=== PATIENT | female | born 1965 | race Caucasian/White ===

== ENCOUNTER → 2017-05-10 | Outpatient (CLI) | payer OTHER ==
--- NOTE | 2017-05-10 10:44 | XR ---
EXAMINATION TYPE: XR humerus RT DATE OF EXAM: 05/10/2017 CLINICAL HISTORY: Right arm pain after lifting injury TECHNIQUE: Two views of the right humerus are obtained. COMPARISON: None. FINDINGS: There is no acute fracture or dislocation seen in the right humerus. The right shoulder a nd elbow joints appear within normal limits. The overlying soft tissue appears within normal limits. IMPRESSION: No acute fracture or dislocation is evident in the right humerus.
== END | disposition home or self-care (01) ==
LOC: RADXRMAIN 10:19
PROVIDERS: ATTEND Emergency Medicine
DX: S40.921A Unspecified superficial injury of right upper arm, initial encounter (principal)

== ENCOUNTER 2018-01-28 17:18 | Inpatient (IN) | payer BC, OTHER ==
[2018-01-28] MEDS ORDERED: SODIUM CHLORIDE 0.9% 1,000 ML IV STA (17:33)
--- NOTE | 2018-01-28 17:42 | ED ---
Dizziness HPI - General Chief Complaint: Dizziness Stated Complaint: Recheck Sinus Infection Time Seen by Provider: 01/28/18 17:33 Source: patient, RN notes reviewed, old records reviewed Mode of arrival: ambulatory Limitations: no limitations - History of Present Illness Initial Comments: This is a 52-year-old female the ER for evaluation. Patient resents today for evaluation of dizziness lightheadedness headache, patient also had some ataxia today with stumbling to her left. Patient is recent diagnosis of sinusitis which she is on antibiotics for an kcll-wut-yptedus medication. No other history of medical issues. No high blood pressure high cholesterol no diabetes no history of smoking. Patient denies drugs or alcohol abuse. Patient denies room spinning currently. She has mild nausea no vomiting, she thinks he may have had some fevers but does not have recorded MD Complaint: dizziness, difficulty walking -: days(s) Timing: gradual onset, intermittent Description: lightheadedness, off-balance, difficulty walking History of Same: No History of Trauma: No Severity: mild Improves With: remaining still Worsens With: nothing Associated Symptoms: denies other symptoms - Related Data Home Medications Medication Instructions Recorded Confirmed Guaifenesin/Pseudoephedrne HCl 1 tab PO Q12H PRN 01/28/18 01/28/18 [Mucinex D ER 1,200-120 mg Tab] Ibuprofen [Motrin Ib] 400 mg PO Q6H PRN 01/28/18 01/28/18 Sulfamethox-Tmp 800-160Mg [Bactrim 1 tab PO BID 01/28/18 01/28/18 DS 800-160 mg] Allergies Allergy/AdvReac Type Severity Reaction Status Date / Time feathers AdvReac Dyspnea Verified 01/28/18 17:39 mold AdvReac Dyspnea Verified 01/28/18 17:39 Review of Systems ROS Statement: Those systems with pertinent positive or pertinent negative responses have been documented in the HPI. ROS Other: All systems not noted in ROS Statement are negative. Past Medical History Past Medical History: Asthma History of Any Multi-Drug Resistant Organisms: None Reported Additional Past Surgical History / Comment(s): cyst removed from uterus, "essure " procedure Past Psychological History: No Psychological Hx Reported Smoking Status: Current every day smoker Past Alcohol Use History: Occasional Past Drug Use History: None Reported General Exam - General Exam Comments Initial Comments: NIH is 0, cerebellar testing is negative Limitations: no limitations General appearance: alert, in no apparent distress Head exam: Present: atraumatic, normocephalic, normal inspection Eye exam: Present: normal appearance, PERRL, EOMI. Absent: scleral icterus, conjunctival injection, periorbital swelling ENT exam: Present: normal exam, mucous membranes moist Neck exam: Present: normal inspection. Absent: tenderness, meningismus, lymphadenopathy Respiratory exam: Present: normal lung sounds bilaterally. Absent: respiratory distress, wheezes, rales, rhonchi, stridor Cardiovascular Exam: Present: regular rate, normal rhythm, normal heart sounds. Absent: systolic murmur, diastolic murmur, rubs, gallop, clicks GI/Abdominal exam: Present: soft, normal bowel sounds. Absent: distended, tenderness, guarding, rebound, rigid Extremities exam: Present: normal inspection, full ROM, normal capillary refill. Absent: tenderness, pedal edema, joint swelling, calf tenderness Back exam: Present: normal inspection Neurological exam: Present: alert, oriented X3, CN II-XII intact Psychiatric exam: Present: normal affect, normal mood Skin exam: Present: warm, dry, intact, normal color. Absent: rash Course Vital Signs 01/28/18 01/28/18 01/28/18 17:25 18:36 18:40 Temperature 98.4 F Pulse Rate 78 69 Respiratory 18 Rate Blood Pressure 109/74 99/53 O2 Sat by Pulse 99 100 100 Oximetry 01/28/18 01/28/18 01/28/18 18:50 19:01 19:10 Temperature Pulse Rate 71 71 72 Respiratory 18 Rate Blood Pressure 99/53 99/53 99/53 O2 Sat by Pulse 100 100 100 Oximetry 01/28/18 01/28/18 01/28/18 19:20 19:30 19:40 Temperature Pulse Rate 71 69 Respiratory 18 Rate Blood Pressure 99/53 99/53 99/53 O2 Sat by Pulse 100 94 L Oximetry 01/28/18 01/28/18 01/28/18 19:50 20:00 20:10 Temperature Pulse Rate 74 Respiratory Rate Blood Pressure 101/60 101/60 101/60 O2 Sat by Pulse 99 Oximetry 01/28/18 01/28/18 20:20 20:30 Temperature Pulse Rate 71 73 Respiratory Rate Blood Pressure 101/60 101/60 O2 Sat by Pulse 99 Oximetry - Reevaluation(s) Reevaluation #1: 01/28/18 18:29 Medical record is reviewed EKG Findings - EKG Comments: EKG Findings:: EKG shows sinus rhythm rate of 60, TN 1:30, QRS 84, QTC 444 Medical Decision Making - Lab Data Result diagrams: 01/28/18 18:20 01/28/18 18:20 Lab Results 01/28/18 01/28/18 01/28/18 Range/Units 18:20 18:20 18:20 WBC 13.9 H (3.8-10.6) k/uL RBC 4.57 (3.80-5.40) m/uL Hgb 13.2 (11.4-16.0) gm/dL Hct 40.7 (34.0-46.0) % MCV 89.2 (80.0-100.0) fL MCH 28.9 (25.0-35.0) pg MCHC 32.4 (31.0-37.0) g/dL RDW 13.0 (11.5-15.5) % Plt Count 375 (150-450) k/uL Neutrophils % 84 % Lymphocytes % 10 % Monocytes % 4 % Eosinophils % 1 % Basophils % 0 % Neutrophils # 11.7 H (1.3-7.7) k/uL Lymphocytes # 1.4 (1.0-4.8) k/uL Monocytes # 0.6 (0-1.0) k/uL Eosinophils # 0.1 (0-0.7) k/uL Basophils # 0.1 (0-0.2) k/uL Sodium 138 (137-145) mmol/L Potassium 4.7 (3.5-5.1) mmol/L Chloride 105 (98-107) mmol/L Carbon Dioxide 25 (22-30) mmol/L Anion Gap 8 mmol/L BUN 17 (7-17) mg/dL Creatinine 1.04 (0.52-1.04) mg/dL Est GFR (CKD-EPI)AfAm 73 (>60 ml/min/1.73 sqM) Est GFR (CKD-EPI)NonAf 63 (>60 ml/min/1.73 sqM) Glucose 158 H (74-99) mg/dL Calcium 9.2 (8.4-10.2) mg/dL Total Bilirubin 0.4 (0.2-1.3) mg/dL AST 16 (14-36) U/L ALT 20 (9-52) U/L Alkaline Phosphatase 76 (38-126) U/L Total Creatine Kinase 82 (30-135) U/L CK-MB (CK-2) 1.4 (0.0-2.4) ng/mL CK-MB (CK-2) Rel Index 1.7 Troponin I 0.037 H* (0.000-0.034) ng/mL Total Protein 6.8 (6.3-8.2) g/dL Albumin 3.8 (3.5-5.0) g/dL Critical Care Time Critical Care Time: Yes Total Critical Care Time: 31 Disposition Clinical Impression: Dizziness, NSTEMI (non-ST elevated myocardial infarction) Disposition: ADMITTED IP TO THIS [facility] Condition: Good Is patient prescribed a controlled substance at d/c from ED?: No Referrals: Yahaira Torrez DO [Primary Care Provider] - 1-2 days
[2018-01-28] MEDS: ONDANSETRON 4 MG/2 ML VIAL IVP STA ×2 (18:30→21:45)
[2018-01-28 18:36] LABS: Basophils # (A) 0.1 k/uL (0-0.2); Basophils % (A) 0 %; Eosinophils # (A) 0.1 k/uL (0-0.7); Eosinophils % (A) 1 %; HCT 40.7 % (34.0-46.0); HGB 13.2 gm/dL (11.4-16.0); Lymphocytes # (A) 1.4 k/uL (1.0-4.8); Lymphocytes % (A) 10 %; MCH 28.9 pg (25.0-35.0); MCHC 32.4 g/dL (31.0-37.0); MCV 89.2 fL (80.0-100.0); Mean Platelet Volume 7.4; Monocytes # (A) 0.6 k/uL (0-1.0); Monocytes % (A) 4 %; Neutrophils # (A) 11.7 k/uL (1.3-7.7); Neutrophils % (A) 84 %; Platelet Count 375 k/uL (150-450); RBC 4.57 m/uL (3.80-5.40); WBC 13.9 k/uL (3.8-10.6)
[2018-01-28 18:52] LABS: Albumin 3.8 g/dL (3.5-5.0); Calcium 9.2 mg/dL (8.4-10.2); Potassium 4.7 mmol/L (3.5-5.1); Total Bilirubin 0.4 mg/dL (0.2-1.3); Total Protein 6.8 g/dL (6.3-8.2)
[2018-01-28 19:11] LABS: Creatine Kinase MB 1.4 ng/mL (0.0-2.4)
[2018-01-28 19:14] LABS: Troponin I 0.037 ng/mL (0.000-0.034)
--- NOTE | 2018-01-28 19:42 | CT ---
EXAMINATION TYPE: CT brain wo con DATE OF EXAM: 01/28/2018 COMPARISON: None HISTORY: Weakness. CT DLP: 1091.4 mGycm Automated exposure control for dose reduction was used. FINDINGS: Ventricles and sulci appear normal. There is no mass effect nor midline shift. There is no sign of in tracranial hemorrhage. Calvarium is intact. IMPRESSION: NEGATIVE CT SCAN OF THE BRAIN.
[2018-01-28] MEDS ORDERED: HEPARIN SODIUM,PORCINE 5,000 UNIT/ML 1 ML VIAL IV ONE (20:38)
[2018-01-28] MEDS ORDERED: NITROGLYCERIN SL TABS 0.4 MG TAB SUBLINGUAL PRN (20:38)
[2018-01-28] MEDS ORDERED: HEPARIN SODIUM,PORCINE 5,000 UNIT/ML 1 ML VIAL IV PRN (20:38)
[2018-01-28] MEDS ORDERED: ASPIRIN 81 MG PO STA (20:38)
[2018-01-28] MEDS: METOPROLOL TARTRATE 25 MG TAB PO SCH (21:40)
[2018-01-28] MEDS: HEPARIN SOD,PORK IN 0.45% NACL 25,000 UNIT in 0.45% NACL 1 500ML.BAG IV SCH (21:40)
[2018-01-28 23:42] LABS: Creatine Kinase MB 1.4 ng/mL (0.0-2.4)
[2018-01-28 23:43] LABS: Troponin I 0.042 ng/mL (0.000-0.034)
[2018-01-28] MEDS ORDERED: [UNRECOGNIZED DRUG - OTHER] PO PRN (23:43)
[2018-01-28] MEDS ORDERED: TEMAZEPAM 15 MG CAP PO PRN (23:44)
[2018-01-28] MEDS ORDERED: ALPRAZolam 0.25 MG TAB PO PRN (23:44)
[2018-01-29] MEDS: ACETAMINOPHEN TAB 500 MG TAB PO PRN ×3 (04:03→23:59)
[2018-01-29 05:42] VITALS: BMI 40.7
[2018-01-29 05:55] LABS: Basophils # (A) 0.1 k/uL (0-0.2); Basophils % (A) 1 %; Eosinophils # (A) 0.1 k/uL (0-0.7); Eosinophils % (A) 1 %; HCT 36.4 % (34.0-46.0); HGB 11.6 gm/dL (11.4-16.0); Lymphocytes % (A) 19 %; MCH 28.8 pg (25.0-35.0); MCHC 31.8 g/dL (31.0-37.0); MCV 90.4 fL (80.0-100.0); Mean Platelet Volume 7.2; Monocytes # (A) 0.5 k/uL (0-1.0); Monocytes % (A) 5 %; Neutrophils # (A) 7.3 k/uL (1.3-7.7); Neutrophils % (A) 73 %; Platelet Count 377 k/uL (150-450); RBC 4.02 m/uL (3.80-5.40); WBC 10.1 k/uL (3.8-10.6)
[2018-01-29] MEDS: PANTOPRAZOLE 40 MG TABLET PO SCH (06:51)
[2018-01-29 07:07] LABS: Calcium 8.7 mg/dL (8.4-10.2); Potassium 4.6 mmol/L (3.5-5.1)
[2018-01-29 07:18] LABS: Creatine Kinase MB 1.4 ng/mL (0.0-2.4)
[2018-01-29 07:22] LABS: Troponin I 0.053 ng/mL (0.000-0.034)
[2018-01-29] MEDS: ASPIRIN 325 MG TAB PO SCH (08:36)
[2018-01-29] MEDS: SULFAMETHOX-TMP 800-160MG 1 EACH TAB PO SCH ×2 (08:36→21:01)
[2018-01-29] MEDS: METOPROLOL TARTRATE 25 MG TAB PO SCH ×2 (08:36→21:02)
--- NOTE | 2018-01-29 09:51 | HP ---
HISTORY AND PHYSICAL DATE OF SERVICE: 01/28/2018 CHIEF COMPLAINTS: Chest pain, dizziness, headache, sinus infection. HISTORY OF PRESENT ILLNESS: This is a 52-year-old woman with a past medical history of multiple medical problems including history of asthma, history of nicotine dependence being followed by the head of Pulmonary in the outpatient setting. Patient has been sinus issues for the past several days. Patient had headache and neck pain. The patient is also complaining of dizziness. The patient was taking antibiotics, no lakt-dxp-ddxmkka medications. The patient was also complaining of some vague chest discomfort and patient came to [facility] and was admitted for evaluation. Troponins I is 0.037. The initial EKG shows no acute abnormality except nonspecific SVG history changes. There is no history of fever, rigors or chills. No headaches, loss of consciousness or seizures. PAST MEDICAL HISTORY: Recent sinus infection, asthma, history nicotine dependence. MEDICATIONS PRIOR TO ADMISSION INCLUDE: 1. Bactrim DS 1 p.o. b.i.d. 2. Motrin 400 mg q.6 p.r.n. 3. Mucinex 1 p.o. b.i.d. p.r.n. ALLERGIES: FEATHERS, MOLD. FAMILY HISTORY: No history of heart disease or strokes family. SOCIAL HISTORY: No smoking no alcohol intake. REVIEW OF SYSTEMS: ENT: As mentioned earlier. CARDIOVASCULAR: As mentioned earlier. GI: No nausea. : No dysuria. NERVOUS SYSTEM:: No numbness or weakness. ALLERGY/IMMUNOLOGY: No asthma. MUSCULOSKELETAL: As mentioned earlier. HEMATOLOGY: No history anemia. ENDOCRINE: No history of diabetes or hypothyroid. CONSTITUTIONAL: As mentioned earlier. DERMATOLOGY: Negative. PSYCHIATRIC: Negative. PHYSICAL EXAMINATION: Pulse 65, blood pressure 101/63, respiration 20, temperature is normal, pulse ox normal. HEENT: Conjunctivae normal. NECK: No jugular venous distension. CARDIOVASCULAR: S1, S2. RESPIRATION: Breath sounds diminished at the bases, no rhonchi, no crackles. ABDOMEN: Soft, obese, nontender. No mass palpable. LEGS: No edema, no swelling. NERVOUS SYSTEM: Higher functions as mentioned. Moves all four limbs. LYMPHATICS: No lymph node enlargement in the neck or axillae. SKIN: No rash, ulcers or bleeding.. JOINTS: No active arthropathy. LABS: WBC 13.2, hemoglobin is 13.2 glucose 158 and troponin 0.037. ASSESSMENT: 1. Chest pain for further evaluation, rule out acute non ST-segment elevation myocardial infarction. 2. Troponin 0.037. 3. History of recent sinusitis. 4. Increased random blood sugar. 5. Increased WBC. 6. Obesity with body mass index of 40.7. 7. History of asthma. 8. History of nicotine dependence. RECOMMENDATION: In this 52-year-old woman who presented with multiple complex medical issues, will monitor the patient closely, follow unstable angina protocol. Consult Cardiology. Further evaluation including stress test or cardiac cath. Otherwise, see orders for details. Prognosis guarded. Smoke cessation has been recommended. Further recommendations to follow. Home medications will be continued. Prognosis guarded. Further recommendations to follow. MMODL / IJN: [id number] /
--- NOTE | 2018-01-29 12:12 | CONS ---
CONSULTATION Mrs. Denisha Garcia is a 52-year-old lady who smokes about half to 1 pack daily. Works as a cook in one of the schools. She is a reasonably active lady, has bronchial asthma and recently had sinus infection and her primary care physician, Dr. Torrez started her on a Bactrim antibiotic along with Singulair that she was already taking. She came into the hospital with complaints of dizziness and lightheadedness. She felt that she could not walk straight. The room was spinning. It was more or less an acute vertigo type of attack that she came in with and then complained of some mild nondescript chest tightness and pressure. Her chest-related symptoms have pretty much resolved. Her dizziness and vertigo symptoms have also improved. However, serial troponins have been performed. They are in the range of 0.04 and 0.05. These are equivocal borderline troponin levels and the pattern does not suggest myocardial injury. She is resting comfortably without symptoms. PAST MEDICAL HISTORY: 1. History of bronchial asthma. 2. Smoking and chronic obstructive pulmonary disease. 3. She has had some previous surgery of a the office cyst taken out. The details are not available. MEDICATIONS: At home include Bactrim and Singulair. PHYSICAL EXAMINATION: Blood pressure is 120/70, pulse rate is about 68 per minute, regular. HEENT unremarkable. Fundus was not examined by me. Neck is supple. No JVD. I do not hear a carotid bruit. There is no thyromegaly. Heart exam reveals S1, S2 heard normally. Lungs reveal bilateral scattered rhonchi with fair air entry. Abdomen is distended, nontender. Lower extremities reveal palpable pulses, trace edema. Central nervous system is normal. EKG revealed sinus mechanism, no acute changes. LAB DATA: Suggests elevated LDL cholesterol, normal renal function. IMPRESSION: 1. Atypical chest pain. 2. Acute vertigo which seems to have resolved. 3. History of bronchial asthma. 4. Smoking and chronic obstructive pulmonary disease with some reactive airway disease component. RECOMMENDATIONS: I am recommending that we continue aspirin, heparin, beta mook for now. Check an additional troponin later in the day and echocardiogram. I will initiate on Lipitor 20 mg daily and I will also check a D-dimer as well to rule out any DVT/pulmonary embolism- type picture, which seems unlikely. I discussed my thoughts in detail with the patient. She has been counseled regarding the need to quit smoking. Thank you very much for the consult. OUSMANE / BARRY: [id number] /
[2018-01-29] MEDS: NICOTINE 14MG/24HR PATCH TRANSDERM SCH (13:00)
[2018-01-29] MEDS ORDERED: IPRATROPIUM-ALBUTEROL 3 ML NEB INHALATION PRN (14:30)
--- NOTE | 2018-01-29 15:01 | XR ---
EXAMINATION TYPE: XR chest 2V DATE OF EXAM: 01/29/2018 COMPARISON: NONE TECHNIQUE: PA and lateral views submitted. HISTORY: Shortness of breath FINDINGS: The lungs are clear and there is no pneumothorax, pleural effusion, or focal pneumonia. Hypertroph ic and degenerative change noted. IMPRESSION: 1. No acute process.
--- NOTE | 2018-01-29 18:00 | P.PN ---
Subjective Progress Note Date: 01/29/18 Progress note being dictated for Dr. Ortiz. Interval history: This is a 52-year-old female admitted with chest pain, possible acute non-STEMI with troponins 0.037, 0.042, 0.053, 0.050. Evaluated by cardiology, acute myocardial infarction ruled out. Maintained on beta mook, heparin, aspirin. Denies further chest pain, palpitations. Denies lightheadedness or dizziness, or focal deficits. Objective - Vital Signs Vital signs: Vital Signs Temp 98.1 F 01/29/18 08:00 Pulse 65 01/29/18 12:00 Resp 16 01/29/18 12:00 BP 99/58 01/29/18 12:00 Pulse Ox 98 01/29/18 12:00 Intake & Output 01/28/18 01/29/18 01/29/18 18:59 06:59 18:59 Intake Total 135.333 193.967 Balance 135.333 193.967 Weight 104.326 kg 104.326 kg Intake: IV 10 0.9 10 Intake, IV Titration 125.333 193.967 Amount Heparin Sod,Pork in 0.45% 125.333 193.967 NaCl 25,000 unit In 0.45 % NaCl 1 500ml.bag @ 9.59 UNITS/KG/HR 20 mls/hr IV .Q24H LISBET Rx#:[id number] Other: # Voids 0 - Exam PHYSICAL EXAM: VITAL SIGNS: As above GENERAL: Sitting up in bed, no acute distress HEENT: Conjunctivae normal. eyes normal. Oral mucosa moist NECK: No JVD. No thyroid enlargement. No LNs CARDIOVASCULAR: S1, S2 muffled. No murmur RESPIRATION: Breath sounds diminished in the bases. Scattered rhonchi, no crackles. No bronchial breathing. ABDOMEN: Soft, nontender . No guarding. no masses palpable.Bowel sounds heard. LEGS: trace edema. no swelling PSYCHIATRY: Alert and oriented -3, mood and affect normal. NERVOUS SYSTEM: Cranial N 2-12 grossly normal. Moves all 4 limbs. Diffuse weakness No focal deficits. Skin: no ulcer no rash Joints: No active swelling. No inflammation. Lymphatic system. No LN neck axilla or groin. - Labs CBC & Chem 7: 01/29/18 05:40 01/29/18 05:40 Labs: Abnormal Lab Results - Last 24 Hours (Table) 01/28/18 01/28/18 01/28/18 Range/Units 18:20 18:20 18:20 WBC 13.9 H (3.8-10.6) k/uL Neutrophils # 11.7 H (1.3-7.7) k/uL APTT (22.0-30.0) sec Chloride (98-107) mmol/L Glucose 158 H (74-99) mg/dL Troponin I 0.037 H* (0.000-0.034) ng/mL LDL Cholesterol, Calc (0-99) mg/dL HDL Cholesterol (40-60) mg/dL 01/28/18 01/29/18 01/29/18 Range/Units 23:00 03:16 05:40 WBC (3.8-10.6) k/uL Neutrophils # (1.3-7.7) k/uL APTT 37.2 H (22.0-30.0) sec Chloride (98-107) mmol/L Glucose (74-99) mg/dL Troponin I 0.042 H* 0.053 H* (0.000-0.034) ng/mL LDL Cholesterol, Calc (0-99) mg/dL HDL Cholesterol (40-60) mg/dL 01/29/18 01/29/18 Range/Units 05:40 10:51 WBC (3.8-10.6) k/uL Neutrophils # (1.3-7.7) k/uL APTT 46.7 H (22.0-30.0) sec Chloride 111 H (98-107) mmol/L Glucose (74-99) mg/dL Troponin I (0.000-0.034) ng/mL LDL Cholesterol, Calc 137 H (0-99) mg/dL HDL Cholesterol 39 L (40-60) mg/dL Assessment and Plan Assessment: -Chest pain, troponins 0.037, 0.042, 0.053, 0.050; atypical with acute non- STEMI ruled out as per cardiology -Recent sinusitis -Obesity, BMI 40.7 -Ongoing nicotine dependence -History of asthma -Hyperlipidemia Plan: Continue on current medication regime ,monitoring and symptomatic treatment. Maintain aspirin and beta mook, statin. Evaluated by cardiology, echo ordered. Smoking cessation readdressed. Discharge planning in progress for tomorrow The impression and plan of care has been dictated as directed. : I performed a history and examination of this patient, discussed the same with the dictator. I agree with the dictator's note ,documented as a scribe. Any additional findings or plans will be noted.
--- NOTE | 2018-01-29 18:30 | PN ---
PROGRESS NOTE DATE OF SERVICE: 01/29/2018 This 52-year-old woman who was admitted predominantly with dizziness and headaches had elevated troponin. The troponin was found to be 0.042, 0.053 and 0.050. Cardiology if following the patient closely. No chest pain. No palpitations. No fever. PHYSICAL EXAMINATION: Alert and oriented x3. Pulse 65, blood pressure 99/58, respiration 16, temperature 98.1, pulse ox 98% on room air. HEENT: Conjunctivae normal. NECK: No jugular venous distention. CARDIOVASCULAR SYSTEM: S1, S2 muffled. RESPIRATORY SYSTEM: Breath sounds diminished at the bases. No rhonchi. No crackles. ABDOMEN: Soft, non-tender. No mass palpable. LEGS: No edema. No swelling. NERVOUS SYSTEM: Higher functions as mentioned earlier. Moves all 4 limbs. No focal motor or sensory deficit. LYMPHATICS: No lymph node palpable in neck, axillae or groin. SKIN: No ulcer, rash, bleeding. LABS: Labs at this time show WBC 10.1, hemoglobin 11.6. Troponins are noted. LDL is 137. ASSESSMENT: 1. Chest pain; rule out acute ytr-WI-tfckayh-elevation myocardial infarction. 2. Troponin 0.037. 3. Hyperlipidemia. 4. History of recent sinusitis. 5. Increased random blood sugar. 6. Increased white count. 7. Obesity with a body mass index of 40.7. 8. History of asthma. 9. History of nicotine dependence. RECOMMENDATIONS AND DISCUSSION: I recommend to continue current medication, continue with the monitoring, symptomatic treatment. I recommend closely following with Cardiology. The patient was started on Lipitor and aspirin. Guarded prognosis. Increase ambulation. Prognosis guarded. Further recommendations to follow. MMODL / IJN: [id number] /
[2018-01-29] MEDS: IPRATROPIUM-ALBUTEROL 3 ML NEB INHALATION SCH (19:37)
[2018-01-29] MEDS ORDERED: ATORVASTATIN 20 MG TAB PO SCH (21:00)
[2018-01-29] MEDS ORDERED: MONTELUKAST 10 MG TAB PO SCH (21:00)
[2018-01-30] MEDS: HEPARIN SOD,PORK IN 0.45% NACL 25,000 UNIT in 0.45% NACL 1 500ML.BAG IV SCH (01:22)
[2018-01-30] MEDS: PANTOPRAZOLE 40 MG TABLET PO SCH (06:26)
--- NOTE | 2018-01-30 06:46 | ECHOF ---
Referral Reason:r/o MT MEASUREMENTS -------- HEIGHT: 152.4 cm WEIGHT: 104.3 kg BP: RVIDd: 3.1 cm (< 3.3) IVSd: 1.1 cm (0.6 - 1.1) LVIDd: 5.1 cm (3.9 - 5.3) LVPWd: 0.9 cm (0.6 - 1.1) IVSs: 1.4 cm LVIDs: 3.7 cm LVPWs: 1.7 cm LA Diam: 3.3 cm (2.7 - 3.8) LAESV Index (A-L): 26.15 ml/m Ao Diam: 2.9 cm (2.0 - 3.7) AV Cusp: 1.8 cm (1.5 - 2.6) LA Diam: 4.0 cm (2.7 - 3.8) MV EXCURSION: 17.354 mm (> 18.000) MV EF SLOPE: 142 mm/s (70 - 150) EPSS: 0.9 cm MV E Adriano: 0.91 m/s MV DecT: 173 ms MV A Adriano: 0.77 m/s MV E/A Ratio: 1.17 RAP: 5.00 mmHg RVSP: 29.82 mmHg FINDINGS -------- Sinus rhythm. This was a technically good study. LV size, wall thickness and systolic function are normal, with an EF greater than 55%. The left teodoro tricular size is normal. The right ventricle is normal in size. Normal LA size by volume 22+/-6 ml/m2. The right atrial size is normal. The aortic valve is trileaflet, and appears structurally normal. No aortic stenosis or regurgitation. The mitral valve is normal. Mild mitral regurgitation is present. Mild tricuspid regurgitation present. There is no evidence of pulmonary hypertension. The right v entricular systolic pressure, as measured by Doppler, is 29.82mmHg. Trace/mild (physiologic) pulmonic regurgitation. The aortic root size is normal. There is no pericardial effusion. CONCLUSIONS -------- 1. Sinus rhythm. 2. LV size, wall thickness and systolic function are normal, with an EF greater than 55%. 3. The left ventricular size is normal. 4. Normal LA size by volume 22+/-6 ml/m2. 5. The aortic valve is trileaflet, and appears structurally normal. No aortic stenosis or regurgitati on. 6. Mild mitral regurgitation is present. 7. Mild tricuspid regurgitation present. 8. There is no evidence of pulmonary hypertension. 9. Trace/mild (physiologic) pulmonic regurgitation. 10. The aortic root size is normal. 11. There is no pericardial effusion. PAVILION CUTTER: Mignon Cheatham RDCS
[2018-01-30] MEDS: IPRATROPIUM-ALBUTEROL 3 ML NEB INHALATION SCH ×2 (08:04→12:04)
[2018-01-30 08:07] VITALS: RESP 16
[2018-01-30] MEDS: METOPROLOL TARTRATE 25 MG TAB PO SCH (08:08)
[2018-01-30] MEDS: NICOTINE 14MG/24HR PATCH TRANSDERM SCH (08:08)
[2018-01-30] MEDS: ASPIRIN 325 MG TAB PO SCH (08:08)
[2018-01-30] MEDS: SULFAMETHOX-TMP 800-160MG 1 EACH TAB PO SCH (08:08)
[2018-01-30 08:44] LABS: Basophils # (A) 0.1 k/uL (0-0.2); Basophils % (A) 1 %; Eosinophils # (A) 0.1 k/uL (0-0.7); Eosinophils % (A) 1 %; HCT 38.4 % (34.0-46.0); HGB 12.5 gm/dL (11.4-16.0); Lymphocytes # (A) 2.8 k/uL (1.0-4.8); Lymphocytes % (A) 25 %; MCH 29.5 pg (25.0-35.0); MCHC 32.5 g/dL (31.0-37.0); MCV 90.5 fL (80.0-100.0); Mean Platelet Volume 7.4; Monocytes # (A) 0.5 k/uL (0-1.0); Monocytes % (A) 5 %; Neutrophils # (A) 7.5 k/uL (1.3-7.7); Neutrophils % (A) 68 %; Platelet Count 428 k/uL (150-450); RBC 4.24 m/uL (3.80-5.40); RDW 13.1 % (11.5-15.5); WBC 11.1 k/uL (3.8-10.6)
[2018-01-30 09:02] LABS: Calcium 9.4 mg/dL (8.4-10.2)
[2018-01-30 11:30] VITALS: BP 105/53; PULSE 63; TEMP 97.7
--- NOTE | 2018-01-30 12:52 | PN ---
PROGRESS NOTE Mrs. Garcia was seen by me yesterday. She had a mild troponin elevation and also had a vertigo type picture. Her echo revealed good systolic function. Her troponin profile does not suggest myocardial injury. All the values are in the in range that does not suggest or represent a myocardial injury. This is not a non-ST elevation NM. Her LV function is normal. She is resting comfortably without symptoms. Vital signs are stable. S1, S2 heard normally. Lungs are clear. Abdomen and lower extremity exam unchanged. Patient is a smoker. She has been counseled regarding the need to quit smoking. I am recommending that we decrease her aspirin to 81 mg daily and switch her from IV heparin to subcu heparin, increase activity and she can be discharged and I will see her in the office in 2 weeks. MMODL / IJN: [id number] /
[2018-01-30] MEDS ORDERED: HEPARIN SODIUM,PORCINE 5,000 UNIT/ML 1 ML VIAL SQ SCH (21:00)
--- NOTE | 2018-01-31 01:12 | DS ---
DISCHARGE SUMMARY DATE OF SERVICE: 01/30/2018 FINAL DIAGNOSES: 1. Chest pain with mild troponin elevation not non ST-segment elevation infarction per Cardiology. 2. Troponin 0.037. 3. Dizziness. 4. Hyperlipidemia. 5. History of recent sinusitis. 6. Increased random blood sugar. 7. Increased WBC. 8. Obesity with body mass index 40.7. 9. History of asthma. 10.Hyperlipidemia. 11.History of nicotine dependence. DISCHARGE DISPOSITION: Patient being discharged in stable condition with guarded prognosis. Discharge cleared by cardiology. HISTORY OF PRESENT ILLNESS: This 52-year-old woman with past medical history of multiple medical problems, was admitted with dizziness and multiple symptomatology. The troponin was found to be slightly elevated at 0.037. Cardiology saw the patient and thought to be not indicative of acute non ST-segment elevation myocardial infarction. Please refer to detail cardiology evaluation for further information. The patient was continued to be asymptomatic and the patient cleared for discharge by Cardiology. Outpatient followup suggested and workup suggested. On exam, vital signs stable. Cardiovascular: S1, S2. Abdomen soft. Central nervous system: No focal deficits. DISCHARGE ADVICE AND MEDICATIONS: 1. Diet is cardiac diet. 2. Activity limited until follow up. 3. Follow up with Dr. Montenegro in 2-3 days. 4. Follow with Cardiology in 2 weeks in outpatient follow up including stress test. DISCHARGE MEDICATIONS: 1. Guaifenesin b.i.d. p.r.n. 2. Singular 10 mg q.h.s. 3. Bactrim DS 1 p.o. b.i.d. 4. Aspirin 81 mg daily. 5. Lipitor 20 mg q.h.s. 6. Lopressor 25 mg p.o. b.i.d. 7. Habitrol 14 daily. No smoking. Once again, patient is being discharged in stable condition stable condition with guarded prognosis. MMODL / IJN: [id number] /
[2018-01-31] MEDS ORDERED: ASPIRIN 81 MG PO SCH (09:00)
== END 2018-01-30 15:14 | disposition home or self-care (01) | DRG 313 ==
LOC: EC 17:18 → 3SCARD 20:38
PROVIDERS: ADMIT Hospitalist; ATTEND Hospitalist
DX: R07.9 Chest pain, unspecified (principal); Z68.41 Body mass index [BMI] 40.0-44.9, adult; E66.9 Obesity, unspecified; E78.5 Hyperlipidemia, unspecified; Z71.6 Tobacco abuse counseling; F17.210 Nicotine dependence, cigarettes, uncomplicated; J44.9 Chronic obstructive pulmonary disease, unspecified; R42 Dizziness and giddiness; R73.9 Hyperglycemia, unspecified; R74.8 Abnormal levels of other serum enzymes; M54.2 Cervicalgia; R51 Headache; Z79.2 Long term (current) use of antibiotics
CPT/HCPCS: 36415; 70450; 71046; 80048; 80053; 80061; 82550; 82553; 84484; 85025; 85379; 85730; 93005; 93306; 94640; 96361; 96365; 96366; 96375; 96376; 99291

== ENCOUNTER 2021-09-20 14:02 | Emergency (ER) | payer BC ==
[2021-09-20] MEDS ORDERED: ONDANSETRON 4 MG/2 ML VIAL IVP STA (14:40)
[2021-09-20 15:22] LABS: Appearance,Urine Clear (Clear); Bacteria,Urine Rare /hpf; Bilirubin,Urine Negative (Negative); Blood,Urine Trace (Negative); Color,Urine Yellow; Glucose,Urine (UA) Negative (Negative); Ketones,Urine Negative (Negative); Leukocyte Esterase,Urine Large (Negative); Mucus,Urine Occasional /hpf; Nitrite,Urine Negative (Negative); Protein,Urine Trace (Negative); RBC,Urine 4 /hpf (0-5); Specific Gravity,Urine 1.023 (1.001-1.035); Squamous Epithelial Cell,Urine 4 /hpf (0-4); Urobilinogen,Urine <2.0 mg/dL (<2.0); WBC,Urine 5 /hpf (0-5)
--- NOTE | 2021-09-20 15:23 | XR ---
EXAMINATION TYPE: XR KUB DATE OF EXAM: 09/20/2021 Comparison: None Clinical History: 56-year-old female abdominal pain Findings: Lung bases are clear. No evidence for free intraperitoneal air. No dilated small bowel or differential air-fluid levels. No significant stool burden. Bilaterally Essure devices are noted. No radiographically apparent suspicious calcifications. Impression: No evidence for free air or bowel obstruction. No significant stool burden.
[2021-09-20] MEDS ORDERED: ACETAMINOPHEN TAB 325 MG TAB PO STA (15:54)
[2021-09-20] MEDS ORDERED: IBUPROFEN 600 MG TAB PO STA (15:54)
[2021-09-20] MEDS ORDERED: SODIUM CHLORIDE 0.9% 1,000 ML IV ONE (15:57)
[2021-09-20 16:10] LABS: Basophils # (A) 0.1 k/uL (0-0.2); Basophils % (A) 1 %; Eosinophils # (A) 0.1 k/uL (0-0.7); Eosinophils % (A) 1 %; HCT 41.7 % (34.0-46.0); HGB 13.5 gm/dL (11.4-16.0); Lymphocytes # (A) 0.2 k/uL (1.0-4.8); Lymphocytes % (A) 3 %; MCHC 32.4 g/dL (31.0-37.0); MCV 89.3 fL (80.0-100.0); Mean Platelet Volume 8.6; Monocytes # (A) 0.4 k/uL (0-1.0); Monocytes % (A) 6 %; Neutrophils # (A) 6.1 k/uL (1.3-7.7); Neutrophils % (A) 87 %; Platelet Count 281 k/uL (150-450); RBC 4.66 m/uL (3.80-5.40); RDW 12.9 % (11.5-15.5)
[2021-09-20 16:25] LABS: Albumin 4.9 g/dL (3.5-5.0); Calcium 9.7 mg/dL (8.4-10.2); Potassium 4.2 mmol/L (3.5-5.1); Total Bilirubin 0.4 mg/dL (0.2-1.3); Total Protein 7.5 g/dL (6.3-8.2)
[2021-09-20] MEDS ORDERED: cefTRIAXone IN SWFI 1,000 MG/10 ML SYRINGE IVP STA (16:42)
[2021-09-20] MEDS ORDERED: KETOROLAC 15 MG/ML 1 ML VIAL IVP STA (16:52)
--- NOTE | 2021-09-20 18:05 | CT ---
EXAMINATION TYPE: CT abdomen pelvis wo con DATE OF EXAM: 09/20/2021 COMPARISON: None HISTORY: RT side flank pain CT DLP: 1672.4 mGycm Automated exposure control for dose reduction was used. Images obtained from the diaphragm to the floor of the pelvis with no contrast. The lung bases are clear. No pleural effusion. Heart size is normal. No pericardial effusion. There is small hiatal hernia. Liver spleen and stomach pancreas appear intact. Gallbladder is intact. There is irregular hypodensity at the suraj hepatis near the gallbladder that measures 6 x 3 cm. There is no adrenal mass. Kidneys show normal size and contour. No hydronephrosis. Ureters are not di lated. No retroperitoneal adenopathy. The bladder distends smoothly. No inguinal hernia. No free flui d in the pelvis. No pelvic mass. Uterus is retroverted. There is no mesenteric edema. No ascites or free air. No sign of a bowel obstruction. The lumbar vert ebrae have normal alignment. No compression fracture. Posterior elements are intact. The bony pelvis is intact. IMPRESSION: There is a elongated hypodensity in the anterior right lobe of the liver near the gallbladder that co uld be hemangioma. Ultrasound would be helpful for further evaluation. No dilated ducts. No evidence of renal stone or obstruction. Appendix not seen.
--- NOTE | 2021-09-20 18:57 | ED ---
General Adult HPI - General Chief complaint: Urogenital Stated complaint: poss kidney stone Time Seen by Provider: 09/20/21 14:39 Source: patient Mode of arrival: ambulatory Limitations: no limitations - History of Present Illness Initial comments: Patient is a 56-year-old female presenting with chief complaint of right-sided flank pain. Patient states symptoms began today, she also admits to nausea and subjective fever. Patient was seen by her doctor today, states that her urine did not appear abnormal, it was several culture and she was provided with an antibiotic. Patient went home and continued to feel worse. She denies any chest pain, shortness of breath, abdominal pain, dysuria, hematuria, urgency, frequency, diarrhea, hematochezia, melena. - Related Data Home Medications Medication Instructions Recorded Confirmed Montelukast [Singulair] 10 mg PO HS 01/29/18 09/20/21 Albuterol Sulfate [Proair Hfa] 2 puff INHALATION RT-QID PRN 09/20/21 09/20/21 Ciprofloxacin HCl [Cipro] 500 mg PO BID 09/20/21 09/20/21 Fluticasone Propion/Salmeterol 1 puff INHALATION RT-BID 09/20/21 09/20/21 [Wixela 250-50 Inhub] amLODIPine BESYLATE/BENAZEPRIL 1 cap PO HS 09/20/21 09/20/21 [Lotrel 5-20 mg Capsule] predniSONE 10 mg PO DAILY 09/20/21 09/20/21 Previous Rx's Medication Instructions Recorded Cephalexin [Keflex] 500 mg PO Q12HR 5 Days #10 cap 09/20/21 Nirmatrelvir/Ritonavir [Paxlovid 1 each PO BID 5 Days #1 packet 09/20/21 2X150 mg-100 mg (Eua)] Ondansetron Odt [Zofran Odt] 4 mg PO Q8HR PRN #10 tab 09/20/21 Allergies Allergy/AdvReac Type Severity Reaction Status Date / Time feathers AdvReac Dyspnea Verified 09/20/21 16:40 mold AdvReac Dyspnea Verified 09/20/21 16:40 Review of Systems ROS Statement: Those systems with pertinent positive or pertinent negative responses have been documented in the HPI. ROS Other: All systems not noted in ROS Statement are negative. Past Medical History Past Medical History: Asthma History of Any Multi-Drug Resistant Organisms: None Reported Additional Past Surgical History / Comment(s): cyst removed from uterus, "essure" procedure Past Anesthesia/Blood Transfusion Reactions: No Reported Reaction Past Psychological History: No Psychological Hx Reported Smoking Status: Never smoker Past Alcohol Use History: Occasional Past Drug Use History: None Reported General Exam Limitations: no limitations General appearance: alert, in no apparent distress Head exam: Present: atraumatic, normocephalic, normal inspection Eye exam: Present: normal appearance, EOMI. Absent: scleral icterus, periorbital swelling Neck exam: Present: normal inspection Respiratory exam: Present: normal lung sounds bilaterally. Absent: respiratory distress, wheezes, rales, rhonchi, stridor Cardiovascular Exam: Present: regular rate, normal rhythm, normal heart sounds. Absent: systolic murmur, diastolic murmur, rubs, gallop, clicks GI/Abdominal exam: Present: soft. Absent: distended, tenderness, guarding, rebound, rigid Back exam: Present: normal inspection. Absent: CVA tenderness (R), CVA tenderness (L) Neurological exam: Present: alert, oriented X3, CN II-XII intact Psychiatric exam: Present: normal affect, normal mood Skin exam: Present: warm, dry, intact, normal color. Absent: rash Course Vital Signs 09/20/21 09/20/21 09/20/21 14:31 17:16 20:04 Temperature 98.4 F 98.7 F Pulse Rate 96 74 78 Respiratory 18 16 22 Rate Blood Pressure 138/95 125/58 139/79 O2 Sat by Pulse 98 95 97 Oximetry Medical Decision Making - Medical Decision Making Patient is a 56-year-old female presenting with chief complaint of right flank pain. Admits to nausea. On examination temperature is 99.9. I'm not able to elicit back pain on palpation, no abdominal pain. CBC and CMP are grossly unremarkable. Urine suggests possible UTI, may be due to contamination, will be sent for culture. Patient tested positive for Covid. We will treat with antiviral medication. Discussed dose modification of her Lotrel. Discussed supportive treatment and quarantine guidelines. Follow-up with PCP. Report back to ER if any new or worsening symptoms. Discussed return parameters answered all questions. Patient conveyed verbal understanding and agreed to the plan. I discussed this case with my attending Dr. Mendoza. - Lab Data Result diagrams: 09/20/21 15:58 09/20/21 15:58 Lab Results 09/20/21 09/20/21 09/20/21 Range/Units 14:58 14:58 15:58 WBC 7.0 (3.8-10.6) k/uL RBC 4.66 (3.80-5.40) m/uL Hgb 13.5 (11.4-16.0) gm/dL Hct 41.7 (34.0-46.0) % MCV 89.3 (80.0-100.0) fL MCH 29.0 (25.0-35.0) pg MCHC 32.4 (31.0-37.0) g/dL RDW 12.9 (11.5-15.5) % Plt Count 281 (150-450) k/uL MPV 8.6 Neutrophils % 87 % Lymphocytes % 3 % Monocytes % 6 % Eosinophils % 1 % Basophils % 1 % Neutrophils # 6.1 (1.3-7.7) k/uL Lymphocytes # 0.2 L (1.0-4.8) k/uL Monocytes # 0.4 (0-1.0) k/uL Eosinophils # 0.1 (0-0.7) k/uL Basophils # 0.1 (0-0.2) k/uL Sodium (137-145) mmol/L Potassium (3.5-5.1) mmol/L Chloride (98-107) mmol/L Carbon Dioxide (22-30) mmol/L Anion Gap mmol/L BUN (7-17) mg/dL Creatinine (0.52-1.04) mg/dL Est GFR (CKD-EPI)AfAm (>60 ml/min/1.73 sqM) Est GFR (CKD-EPI)NonAf (>60 ml/min/1.73 sqM) Glucose (74-99) mg/dL Plasma Lactic Acid Edward (0.7-2.0) mmol/L Calcium (8.4-10.2) mg/dL Total Bilirubin (0.2-1.3) mg/dL AST (14-36) U/L ALT (4-34) U/L Alkaline Phosphatase (38-126) U/L Total Protein (6.3-8.2) g/dL Albumin (3.5-5.0) g/dL Amylase (30-110) U/L Lipase (23-300) U/L Urine Color Yellow Urine Appearance Clear (Clear) Urine pH 7.0 (5.0-8.0) Ur Specific [place] 1.023 (1.001-1.035) Urine Protein Trace H (Negative) Urine Glucose (UA) Negative (Negative) Urine Ketones Negative (Negative) Urine Blood Trace H (Negative) Urine Nitrite Negative (Negative) Urine Bilirubin Negative (Negative) Urine Urobilinogen <2.0 (<2.0) mg/dL Ur Leukocyte Esterase Large H (Negative) Urine RBC 4 (0-5) /hpf Urine WBC 5 (0-5) /hpf Ur Squamous Epith Cells 4 (0-4) /hpf Urine Bacteria Rare H (None) /hpf Urine Mucus Occasional H (None) /hpf Urine HCG, Qual Not Detected (Not Detectd) Coronavirus (PCR) (Not Detectd) 09/20/21 09/20/21 09/20/21 Range/Units 15:58 15:58 18:08 WBC (3.8-10.6) k/uL RBC (3.80-5.40) m/uL Hgb (11.4-16.0) gm/dL Hct (34.0-46.0) % MCV (80.0-100.0) fL MCH (25.0-35.0) pg MCHC (31.0-37.0) g/dL RDW (11.5-15.5) % Plt Count (150-450) k/uL MPV Neutrophils % % Lymphocytes % % Monocytes % % Eosinophils % % Basophils % % Neutrophils # (1.3-7.7) k/uL Lymphocytes # (1.0-4.8) k/uL Monocytes # (0-1.0) k/uL Eosinophils # (0-0.7) k/uL Basophils # (0-0.2) k/uL Sodium 138 (137-145) mmol/L Potassium 4.2 (3.5-5.1) mmol/L Chloride 104 (98-107) mmol/L Carbon Dioxide 25 (22-30) mmol/L Anion Gap 9 mmol/L BUN 13 (7-17) mg/dL Creatinine 0.92 (0.52-1.04) mg/dL Est GFR (CKD-EPI)AfAm 82 (>60 ml/min/1.73 sqM) Est GFR (CKD-EPI)NonAf 71 (>60 ml/min/1.73 sqM) Glucose 108 H (74-99) mg/dL Plasma Lactic Acid Edward 0.9 (0.7-2.0) mmol/L Calcium 9.7 (8.4-10.2) mg/dL Total Bilirubin 0.4 (0.2-1.3) mg/dL AST 29 (14-36) U/L ALT 29 (4-34) U/L Alkaline Phosphatase 65 (38-126) U/L Total Protein 7.5 (6.3-8.2) g/dL Albumin 4.9 (3.5-5.0) g/dL Amylase 42 (30-110) U/L Lipase 53 (23-300) U/L Urine Color Urine Appearance (Clear) Urine pH (5.0-8.0) Ur Specific [place] (1.001-1.035) Urine Protein (Negative) Urine Glucose (UA) (Negative) Urine Ketones (Negative) Urine Blood (Negative) Urine Nitrite (Negative) Urine Bilirubin (Negative) Urine Urobilinogen (<2.0) mg/dL Ur Leukocyte Esterase (Negative) Urine RBC (0-5) /hpf Urine WBC (0-5) /hpf Ur Squamous Epith Cells (0-4) /hpf Urine Bacteria (None) /hpf Urine Mucus (None) /hpf Urine HCG, Qual (Not Detectd) Coronavirus (PCR) Detected A (Not Detectd) Disposition Clinical Impression: Urinary tract infection Disposition: HOME SELF-CARE Condition: Good Instructions (If sedation given, give patient instructions): Urinary Tract Infection in Women (ED) Additional Instructions: Follow up with a one to 2 days. Report back to ER if any new or worsening symptoms. Take medication as prescribed. Take Motrin and Tylenol as needed for fever and pain control. A prescription for Paxlovid was sent to your pharmacy. While taking Paxlovid take half of your regular dose of Lotrel, resume regular dose of Lotrel 2 days after finishing Paxlovid. Contact her doctor with any questions. Quarantine for 5 days starting from the first day of symptoms, followed by 5 days of strict mask use while in public. Prescriptions: Cephalexin [Keflex] 500 mg PO Q12HR 5 Days #10 cap Nirmatrelvir/Ritonavir [Paxlovid 2X150 mg-100 mg (Eua)] 1 each PO BID 5 Days #1 packet Ondansetron Odt [Zofran Odt] 4 mg PO Q8HR PRN #10 tab PRN Reason: Nausea Is patient prescribed a controlled substance at d/c from ED?: No Referrals: Yahaira Torrez DO [Primary Care Provider] - 1-2 days Time of Disposition: 18:58
[2021-09-20 20:06] VITALS: BP 139/79; PULSE 78; RESP 22; TEMP 98.7
== END 2021-09-20 20:08 | disposition home or self-care (01) ==
LOC: EC 14:02
DX: N20.0 Calculus of kidney (principal); J45.909 Unspecified asthma, uncomplicated; Z20.822 Contact with and (suspected) exposure to COVID-19; Z91.041 Radiographic dye allergy status; Z91.048 Other nonmedicinal substance allergy status
CPT/HCPCS: 36415; 80053; 82150; 83605; 83690; 85025; 81001; 81025; 87040; 87635; 74018; 74176; 99284; 96374; 96375; 96361; J2405; J0696; J1885